=== PATIENT | male | born 1985 | race Caucasian/White ===

== ENCOUNTER 2022-02-04 10:45 | Outpatient (CLI) | payer BC | END 2022-02-04 10:46 | disposition home or self-care (01) | LOC: SCSRAD 10:45 | PROVIDERS: ATTEND Family Medicine | DX: M25.562 Pain in left knee (principal) ==

== ENCOUNTER 2025-08-04 11:15 | Outpatient (CLI) | payer BC | END 2025-08-04 11:16 | disposition home or self-care (01) | LOC: SCSRAD 11:15 | PROVIDERS: ATTEND Family Medicine | DX: R06.02 Shortness of breath (principal); R00.0 Tachycardia, unspecified | CPT/HCPCS: 71046 ==